=== PATIENT | male | born 1965 | race Two or more races ===

== ENCOUNTER → 2021-03-13 | Outpatient (CLI) | payer OTHER, SELFPAY ==
--- NOTE | 2021-03-13 | IMM_PTH ---
PATIENT: DADA KIRBY LOC: [facility] U#:[id number] AGE/SX: 55/M ROOM: RE03/13/[address]: Dr. Oseas Mak MD : 1965 BED: DIS: 03/13/2021 SPEC #: [id number] RECD: 03/15/21 11:15 STATUS: SJ RONALD #: [id number] ANJANA: 03/13/21 00:[address]: Oseas Mak DEPT: IMMUNOHISTOCHEMISTRY RECD BY: Najma Brennan Tissues: B - PROSTATE RIGHT D - PROSTATE LEFT Procedures: 34BE12 (add) P40 (add) 34BE12 (initial) PHYSICIAN & [place] [id number] SPECIMEN INFORMATION: Tissue Source: B - Right prostate, mid, core biopsy, D - Left prostate, apex, core biopsy Clinical Info: R97.20 Specimen Number: [id number] B & D CPT code: 60900, 24951 x3 METHODOLOGY: Deparaffinized sections of prefer/formalin-fixed tissue or PAP/DQ stained slides are incubated with monoclonal/polyclonal antibodies/oligonucleotide probes. Localization is made via biotin free immunoperoxidase method. Appropriate controls are performed and reacted as expected. Results on target cell population are indicated in the following table: RESULTS: ANTIBODY / CLONE RESULT Block B P40 (BC28) negative 34BE12 (34BE12) negative Block D P40 (BC28) negative 34BE12 (34BE12) negative These tests were developed and their performance characteristics determined by [facility]. They may not have been cleared or approved by the [place]. Food and Drug Administration. The FDA has determined that such clearance or approval is not necessary. The above immunohistochemical/dualISH markers are ordered and reviewed by the Pathologist. INTERPRETATION: B. Right prostate, mid, core biopsy: Atypical small acinar proliferation (DEANN). D. Left prostate, apex, core biopsy: Atypical small acinar proliferation (DEANN). SJ:diana 03/16/2021 Case has been reviewed in consultation with Dr. Beltran who concurs with the above diagnosis. IDC:[id number]
--- NOTE | 2021-03-13 | PROSBIL_PTH ---
PATIENT: DADA KIRBY LOC: [facility] U#:[id number] AGE/SX: 55/M ROOM: RE03/13/[address]: Dr. Oseas Mak MD : 1965 BED: DIS: 03/13/2021 SPEC #: [id number] RECD: 03/13/21 16:37 STATUS: SJ CARDENAS #: [id number] ANJANA: 03/13/21 00:[address]: Oseas Mak DEPT: SURGICAL PATHOLOGY RECD BY: Romie Palmer Tissues: A - PROSTATE RIGHT B - PROSTATE RIGHT C - PROSTATE RIGHT D - PROSTATE LEFT E - PROSTATE LEFT F - PROSTATE LEFT Procedures: PROSTATE BX HEADER OPERATION: Prostate biopsy PRE-OP DIAGNOSIS: R97.20 TISSUE SUBMITTED: A - Right apex, B - Right mid, C - Right base, D - Left apex, E - Left mid, F - Left base MICROSCOPIC DIAGNOSIS A. Right prostate, apex, core biopsy: Prostatic tissue, negative for malignancy. Focal basal cell hyperplasia. B. Right prostate, mid, core biopsy: Focal atypical small acinar proliferation (DEANN). See comment. C. Right prostate, base, core biopsy: Prostatic tissue, negative for malignancy. D. Left prostate, apex, core biopsy: Focal atypical small acinar proliferation (DEANN). See comment. E. Left prostate, mid, core biopsy: Prostatic tissue, negative for malignancy. Focal basal cell hyperplasia and focal mild chronic inflammation. F. Left prostate, base, core biopsy: Prostatic tissue, negative for malignancy. Focal basal cell hyperplasia and focal mild chronic inflammation. SJ:rg 03/15/2021 COMMENT B & D. Immunohistochemistry ([id number]) supports the above diagnosis. This case has been reviewed in consultation with Dr. Beltran who concurs with the above diagnosis. MICROSCOPIC DESCRIPTION Slides are reviewed. GROSS DESCRIPTION A - Received is one container designated prostate, right apex. The specimen consists of two elongated fragments of light suárez-white soft tissue each measuring 1.5 cm in length and 0.1 cm in diameter. The specimen is totally submitted in one cassette. B - Received is one container designated prostate, right mid. The specimen consists of two elongated fragments of light suárez-white soft tissue each measuring 1.1 cm in length and 0.1 cm in diameter. The specimen is totally submitted in one cassette. C - Received is one container designated prostate, right base. The specimen consists of one elongated fragment of light suárez-white soft tissue measuring 1 cm in length and 0.1 cm in diameter. The specimen is totally submitted in one cassette. D - Received is one container designated prostate, left apex. The specimen consists of two elongated fragments of light suárez-white soft tissue each measuring 1 cm in length and 0.1 cm in diameter. The specimen is totally submitted in one cassette. E - Received is one container designated prostate, left mid. The specimen consists of two elongated fragments of light suárez-white soft tissue each measuring 1.2 cm in length and 0.1 cm in diameter. The specimen is totally submitted in one cassette. F - Received is one container designated prostate, left base. The specimen consists of two elongated fragments of light suárez-white soft tissue each measuring 1.5 cm in length and 0.1 cm in diameter. The specimen is totally submitted in one cassette. / SJ:rg 03/14/21 TC:5 CPT: 93240 x6
== END | disposition home or self-care (01) ==
LOC: LABSPEC 17:12
PROVIDERS: Referring Provider Urology; Visit Provider Urology
DX: R97.20 Elevated prostate specific antigen [PSA] (principal)
CPT/HCPCS: 88305; 88341; 88342; G0416